=== PATIENT | female | born 1980 | race Caucasian/White ===

== ENCOUNTER 2016-12-21 09:04 | Inpatient (IN) | payer BC, OTHER ==
[2016-12-21] VITALS (7 sets, daily range): BP systolic 106–145; BP diastolic 58–70
[~2016-12-21] VITALS: Ht 157.5 cm; Wt 86.2 kg
[~2016-12-21 09:04] MED LIST: /MOM400 PO; /PANT40TA PO; /RANI15TA PO; ACIP20TA PO; ANUS2.5C2 EXT; DOCU10ELUD PO; IBUP600T26 PO; LABE20TAB PO; LABE300T PO; NEXI20GR PO; NORCOTAB PO; PRENTAB74 PO; ZANT150T PO
[2016-12-21] MEDS ORDERED: LR 1,000 ML IV ONE (09:30)
[2016-12-21] MEDS ORDERED: LR 1,000 ML IV SCH ×2 (09:30→14:15)
[2016-12-21 09:42] LABS: MEAN CORPUSCULAR HEMOGLOBIN 27.6 pg (27.0-33.0); MEAN CORPUSCULAR HGB CONC 33.5 g/dl (32.0-36.5); MEAN CORPUSCULAR VOLUME 82.5 fl (80.0-96.0); RED CELL DISTRIBUTION WIDTH 13.7 % (11.5-14.5); WHITE BLOOD COUNT 5.8 K/mm3 (4.0-10.0)
[2016-12-21] MEDS ORDERED: SCOPOLAMINE 1.5 MG TRANSDERMAL As Ordered ONE (09:45)
[2016-12-21] MEDS ORDERED: SCOPOLAMINE 1.5 MG TRANSDERMAL TOP ONE (10:00)
[2016-12-21] MEDS ORDERED: MIDAZOLAM INJ 2 MG/2 ML VIAL (J2250) As Ordered ONE (11:26)
[2016-12-21] MEDS ORDERED: GLYCOPYRROLATE INJ 0.2 MG/ML 2 ML VIAL As Ordered ONE ×2 (11:27→13:25)
[2016-12-21] MEDS ORDERED: fentaNYL 100 MCG/2 ML INJECTION (J3010) As Ordered ONE ×3 (11:27→13:58)
[2016-12-21] MEDS ORDERED: ROCURONIUM BROMIDE 50 MG/5 ML VIAL/SYRINGE As Ordered ONE ×2 (11:27→12:28)
[2016-12-21] MEDS ORDERED: NEOSTIGMINE 1MG/ML 5 ML SYRINGE (J2710) As Ordered ONE (11:27)
[2016-12-21] MEDS ORDERED: dexameTHASONE 4 MG/ML 1ML VIAL (J1100) As Ordered ONE ×2 (11:28→12:28)
[2016-12-21] MEDS ORDERED: METOCLOPRAMIDE INJ 10MG/2ML VIAL (J2765) As Ordered ONE (11:28)
[2016-12-21] MEDS ORDERED: KETOROLAC 60 MG/2 ML VIAL (J1885) As Ordered ONE (11:28)
[2016-12-21] MEDS ORDERED: ONDANSETRON 4MG/2ML VIAL (J2405) As Ordered ONE (11:28)
[2016-12-21] MEDS ORDERED: LIDOCAINE 2% INJ 100 MG/5 ML SDV (FOR ANES.) As Ordered ONE (11:39)
[2016-12-21] MEDS ORDERED: HYDROmorphone HCL 2 MG/ML 1ML VIAL (J1170) As Ordered ONE (12:26)
[2016-12-21] MEDS ORDERED: PROPOFOL 500 MG/50 ML VIAL As Ordered ONE (13:01)
[2016-12-21] MEDS ORDERED: PROPOFOL 200 MG/20 ML VIAL As Ordered ONE (13:29)
[2016-12-21] MEDS ORDERED: MORPHINE 1MG/ML IN 0.9% NACL 100ML IV BAG As Ordered ONE (13:34)
[2016-12-21] MEDS: fentaNYL 100 MCG/2 ML INJECTION (J3010) IV PRN ×4 (13:50→14:05)
[2016-12-21] MEDS: MORPHINE 1MG/ML IN 0.9% NACL 100ML IV BAG IV PRN (13:55)
[2016-12-21] MEDS ORDERED: EPIDURAL/PCA KEYS XX PRN (14:00)
[2016-12-21] MEDS ORDERED: NALBUPHINE HCL 10 MG/ML AMP (J2300) IV PRN (14:00)
[2016-12-21] MEDS ORDERED: diphenhydrAMINE INJ 50MG/ML VIAL (J1200) IV PRN (14:00)
[2016-12-21] MEDS ORDERED: NALOXONE INJ 0.4 MG/1 ML VIAL (J2310) IV PRN (14:00)
[2016-12-21] MEDS: MORPHINE 2 MG/ML 1ML SYRINGE IV PRN ×3 (14:14→15:02)
[2016-12-21] MEDS ORDERED: IBUPROFEN 600 MG TAB PO PRN (14:15)
[2016-12-21] MEDS ORDERED: PERCOCET 5MG/325MG TAB PO PRN (14:15)
[2016-12-21] MEDS ORDERED: ONDANSETRON 4MG/2ML VIAL (J2405) IV PRN (14:15)
[2016-12-21] MEDS: LR 1,000 ML IV SCH ×2 (16:15→22:15)
[2016-12-21] MEDS: PANTOPRAZOLE 40MG TAB (PROTONIX) PO SCH (17:47)
[2016-12-22] VITALS (7 sets, daily range): BP systolic 108–132; BP diastolic 60–68
[2016-12-22] MEDS ORDERED: NS 1,000 ML IV ONE (06:00)
[2016-12-22] MEDS: LR 1,000 ML IV SCH ×3 (06:15→17:48)
[2016-12-22 06:20] LABS: MEAN CORPUSCULAR HEMOGLOBIN 27.9 pg (27.0-33.0); MEAN CORPUSCULAR HGB CONC 33.6 g/dl (32.0-36.5); WHITE BLOOD COUNT 19.6 K/mm3 (4.0-10.0)
[2016-12-22] MEDS: PANTOPRAZOLE 40MG TAB (PROTONIX) PO SCH (09:43)
[2016-12-22] MEDS: MORPHINE 1MG/ML IN 0.9% NACL 100ML IV BAG IV PRN (09:56)
[2016-12-22 11:50] LABS: MEAN CORPUSCULAR HEMOGLOBIN 27.5 pg (27.0-33.0); MEAN CORPUSCULAR HGB CONC 33.4 g/dl (32.0-36.5); MEAN CORPUSCULAR VOLUME 82.5 fl (80.0-96.0); RED CELL DISTRIBUTION WIDTH 14.1 % (11.5-14.5); WHITE BLOOD COUNT 13.1 K/mm3 (4.0-10.0)
[2016-12-22] MEDS ORDERED: CYSTO-CONRAY II 17.2% 250ML VIAL (Q9958) As Ordered ONE (12:18)
[2016-12-22] MEDS ORDERED: LACTATED RINGER'S 1000 ML IV ONE (14:15)
[2016-12-22 14:38] LABS: CREATININE FOR GFR 1.16 MG/DL (0.55-1.02); GLOMERULAR FILTRATION RATE 56.3 (>60); POTASSIUM SERUM 4.3 MEQ/L (3.5-5.1)
--- NOTE | 2016-12-22 14:58 | REP ---
CYSTOGRAM: The procedure was performed by SHUN Rust under the direct supervision of Dr. Mccabe. All imaging was reviewed with Dr. Mccabe prior to dictation. The 250 mL of Cysto-Conray was infused into the patient's bladder through an existing catheter. The bladder filled normally. There were no masses or lesions identified on this examination. The bladder is smooth in contour. No leaks were appreciated on this exam. Fluoroscopy time was 57 seconds. Reviewed by SHUN Rust 12/22/2016 03:58 PEdited and Signed by Eugenio Mccabe MD 12/22/2016 05:20 P
[2016-12-22] MEDS: NORCO, ANEXSIA 5/325MG TABLET (HYDROcodone/ACETAMINOPHEN) PO PRN ×2 (16:09→20:49)
--- NOTE | 2016-12-22 16:59 | RO ---
DATE OF PROCEDURE: 12/21/2016 PREOPERATIVE DIAGNOSIS: Pain and bleeding. POSTOPERATIVE DIAGNOSIS: 1. Pain and bleeding. 2. Extensive adhesions as expected with the patient's multiple surgeries and history of endometriosis. PROCEDURE: Laparoscopic-assisted vaginal hysterectomy with bilateral salpingectomy. The patient retained her ovaries; she is only 36. She did have evidence of extensive endometriosis at the time of our surgery, but she did have extensive adhesions as are documented in the operative photos. SURGEON: Dr. Anca Aldana FORGE PRESS OPERATOR: None. ANESTHESIA: General endotracheal anesthesia. DESCRIPTION OF PROCEDURE: Mimi was brought to the operating room where sufficient general endotracheal anesthesia was induced, and she was prepped, draped and positioned in the usual sterile fashion with the uterine manipulator placed and the Reeves catheter with ability to backfill placed. Attention was then turned to the umbilicus where a transverse semilunar incision was made below the umbilicus and sharp and blunt dissection were continued through the subcutaneous tissues to the level of the rectus fascia, which was transversely incised under direct visualization and then the peritoneum entered under direct visualization, and the Link cannula placed and secured in place under direct visualization in an open laparoscopic technique in the usual fashion. CO2 insufflation was then begun. After adequate CO2 insufflation, the peritoneal cavity was visualized. There were normal, shiny peritoneal surfaces throughout. There was no excrescences, ascites, nor exudates but there were extensive adhesions in the lower abdomen and pelvis, especially from the left side of the uterus and the anterior uterus in a pattern often seen with section. Although this, of course, can not be proven or disproven as the cause. The ovaries themselves were normal in appearance. The tubes had scarring from previous tubal ligation. The left Filshie clip was in place. The right Filshie clip was not in place. There was no visible identifiable Filshie clip, but there was a defect in that tube as expected with previous tubal, so there was clearly scarring from having had it done but the Filshie was not on, nor was it visible. An Enseal manipulating bipolar dissector was placed through the operative port of the scope and used to carefully cauterize and dissect the tubes free of the ovaries. We did use a 2.3 mm clutch grasper placed suprapubically through her section scar to elevate the tube on the right side to facilitate this dissection. We then dissected through the round ligament bilaterally and the superior aspect of the broad ligament bilaterally and then used cold scissors, brought down the adhesions in the anterior uterus. We backfilled the bladder as needed to identify its location and confirm that we were not injuring it, and then having freed much of those adhesions, avoided injury to the bowel or ureters and bladder and freed the utero-ovarian suspensory ligaments, the mesentery of the tube and the round ligaments bilaterally. We went ahead and went below where with the CO2 allowed to escape the abdomen, the instruments removed etc., and attention turned to the cervix where a circumferential incision was made around the base of the cervix. The cardinal ligaments were isolated, clamped, transected and ligated using 0 Vicryl suture, and the Tarun Henry lamps, which were used throughout this portion of the case. The vaginal dissection continued with the isolation of the uterosacrals, which were clamped, transected and ligated, the posterior reflection of the peritoneum, of course, entered and with careful sharp dissection, staying very tight to the uterus, we freed the anterior uterus as well without injury to the bladder. The uterine vasculature was then carefully clamped, transected and ligated with delivery of the uterus and the attached tubes after this dissection had continued appropriately. We then evaluated the pedicles from below. We could see good hemostasis. Angle stitches of #0 Vicryl were placed and the vaginal cuff was closed with a running locked stitch of #0 Vicryl in which we also re-secured carefully the uterosacral ligaments and had good approximation and hemostasis. Attention was then again turned to the abdomen where CO2 was again used to insufflate the abdomen and the peritoneal cavity reevaluated. There was no evidence of injury to the bladder, and there was good hemostasis of the pedicles and evidence of good blood supply to the ovaries and the procedure was then ended. With the instruments and CO2 removed and the fascial wound closed with #0 Vicryl at the umbilicus and then #3-0 at the skin and the Dermabond glue used at the 2.3 mm wound suprapubically. A dry sterile dressing was then applied and the procedure was then ended. Estimated blood loss for the procedure was about 150 mL. Fluid replacement was crystalloid. Complications: None. Condition and Disposition: Mimi tolerated the procedure well and was recovering in the recovery room in good condition.
[2016-12-23] VITALS: BP 121/72
[2016-12-23] MEDS: NORCO, ANEXSIA 5/325MG TABLET (HYDROcodone/ACETAMINOPHEN) PO PRN ×3 (01:02→09:40)
[2016-12-23] MEDS: LR 1,000 ML IV SCH (02:35)
[2016-12-23 04:00] VITALS: BP 148/81
[2016-12-23 06:42] LABS: MEAN CORPUSCULAR HEMOGLOBIN 27.8 pg (27.0-33.0); MEAN CORPUSCULAR HGB CONC 33.8 g/dl (32.0-36.5); MEAN CORPUSCULAR VOLUME 82.2 fl (80.0-96.0); WHITE BLOOD COUNT 10.3 K/mm3 (4.0-10.0)
[2016-12-23 07:14] LABS: CREATININE FOR GFR 1.02 MG/DL (0.55-1.02); GLOMERULAR FILTRATION RATE > 60.0 (>60)
[2016-12-23] MEDS: PANTOPRAZOLE 40MG TAB (PROTONIX) PO SCH (09:39)
[2016-12-23] MEDS ORDERED: LORT5TAB PO (11:11)
--- NOTE | 2016-12-26 16:14 | DSES ---
DATE OF ADMISSION: 12/22/2016 DATE OF DISCHARGE: 12/23/2016 PREOPERATIVE AND ADMITTING DIAGNOSES: Pain, bleeding, dyspareunia, failed conservative efforts, and tender uterus. ADDITIONAL DIAGNOSES PRIOR TO DISCHARGE: 1. Postoperative ileus. 2. Decreased urine output with resolution. BRIEF SUMMARY OF HOSPITAL PRESENTATION AND HOSPITAL COURSE: Mimi presented a 36-year-old 4, para 1-2-1-3 with pain, bleeding, uterine tenderness, and dyspareunia. She had a significant medical history of previous eclamptic seizure with stroke as well as endometriosis, gastroesophageal reflux, wrist surgery, laparoscopy, tubal ligation, and endometrial ablation which had obviously not succeeded. Her family history showed hypertension, heart disease, diabetes, breast cancer, colon cancer, and ovarian cancer. Her social history showed that she was a nonsmoker, nondrug user. She had no known drug allergies. Her medications included: Nexium, naproxen, and sometimes fluconazole. PHYSICAL EXAMINATION: Showed an alert, oriented individual with no apparent distress. Her lungs were clear to auscultation. Heart showed a regular rate and rhythm without murmur. She had normoactive bowel sounds. A soft, nontender abdomen but a tender uterus. INITIAL IMPRESSION: Pain, bleeding, dyspareunia, failed conservative efforts. PLAN: Laparoscopically assisted vaginal hysterectomy (LA[facility]) with removal tubes as well. She was admitted on 12/21/2016. She subsequently underwent the laparoscopic-assisted vaginal hysterectomy with bilateral salpingectomy, she retains her ovaries, in what appeared to be an uncomplicated fashion on 12/21/2016. She subsequently had a postoperative course complicated by what appeared to be postoperative ileus and decreased output. She had a cystometrogram that showed that it was not leakage and rereview of the records showed that her decreased output had been from fairly early on. She was hydrated. Her counts went down a little and there was a suspicion that this was a result of operative bleeding and inadequate hydration because she improved. She initially did not have flatus and had some nausea, so we kept her at just clears but then her bowel function returned. She started passing gas. She started feeling hungry. She was not febrile. Her white count which had jumped responded so we felt that this was a response to the ileus and an operative bleed rather than something else, and her films showed lack of injury to the renal system and so she was then discharged to home in good condition on 12/23/2016.
== END 2016-12-23 12:00 | disposition home or self-care (01) | DRG 513 ==
LOC: M SDC 09:04 → M PED 15:42 → M SDC 12-22 17:06
PROVIDERS: ADMIT Obstetrics & Gynecology; ATTEND Obstetrics & Gynecology
PROC: 0UT9FZZ Resection of Uterus, Via Natural or Artificial Opening With Percutaneous Endoscopic Assistance (ICD-10-PCS; principal; 2016-12-22)
PROC: 0UT7FZZ Resection of Bilateral Fallopian Tubes, Via Natural or Artificial Opening With Percutaneous Endoscopic Assistance (ICD-10-PCS; 2016-12-22)
PROC: 0UTC8ZZ Resection of Cervix, Via Natural or Artificial Opening Endoscopic (ICD-10-PCS; 2016-12-22)
DX: N92.0 Excessive and frequent menstruation with regular cycle (principal); K56.7 Ileus, unspecified; N94.10 Unspecified dyspareunia; K21.9 Gastro-esophageal reflux disease without esophagitis; N73.6 Female pelvic peritoneal adhesions (postinfective); Z79.1 Long term (current) use of non-steroidal anti-inflammatories (NSAID); Z79.899 Other long term (current) drug therapy

== ENCOUNTER 2016-12-25 04:12 | Inpatient (IN) | payer BC, OTHER ==
[~2016-12-25] VITALS: Ht 157.5 cm; Wt 84.5 kg
[~2016-12-25 04:12] MED LIST changes: +LORT5TAB PO
[2016-12-25] MEDS ORDERED: LORT5TAB PO (04:28)
[2016-12-25] MEDS ORDERED: NS 1,000 ML IV ONE ×2 (04:45→07:15)
[2016-12-25] MEDS ORDERED: MORPHINE 4 MG/ML 1ML SYRINGE IV ONE (04:45)
[2016-12-25] MEDS ORDERED: METOCLOPRAMIDE INJ 10MG/2ML VIAL (J2765) IV ONE (04:45)
[2016-12-25 04:51] LABS: BASO % 0.1 % (0.0-1.0); EOS # 0.1 K/mm3 (0.0-0.50); EOS % 0.8 % (0.0-3.0); LARGE UNSTAINED CELL # 0.1 K/mm3 (0.0-0.4); LARGE UNSTAINED CELL % 0.8 % (0.0-4.0); LYMPH # 0.6 K/mm3 (1.5-4.5); LYMPH % 5.5 % (24.0-44.0); MEAN CORPUSCULAR HEMOGLOBIN 27.3 pg (27.0-33.0); MEAN CORPUSCULAR HGB CONC 33.1 g/dl (32.0-36.5); MEAN CORPUSCULAR VOLUME 82.5 fl (80.0-96.0); MONO # 0.3 K/mm3 (0.0-0.8); MONO % 2.8 % (0.0-5.0); NEUTROPHILS # 9.4 K/mm3 (1.8-7.7); PLATELET COUNT, AUTOMATED 282 k/mm3 (150-450); RED CELL DISTRIBUTION WIDTH 14.3 % (11.5-14.5); WHITE BLOOD COUNT 10.4 K/mm3 (4.0-10.0)
[2016-12-25 05:09] LABS: ANION GAP 10 MEQ/L (8-16); BLOOD UREA NITROGEN 11 MG/DL (7-18); CALCIUM LEVEL 7.5 MG/DL (8.5-10.1); CARBON DIOXIDE LEVEL 27 MEQ/L (21-32); CHLORIDE LEVEL 104 MEQ/L (98-107); CREATININE FOR GFR 0.72 MG/DL (0.55-1.02); GLOMERULAR FILTRATION RATE > 60.0 (>60); GLUCOSE, FASTING 98 MG/DL (70-105); SODIUM LEVEL 141 MEQ/L (136-145)
[2016-12-25] MEDS ORDERED: ISOVUE-370 76% 100ML VIAL (Q9967) As Ordered ONE (06:21)
--- NOTE | 2016-12-25 07:10 | REPUSA ---
CLINICAL HISTORY: Abdominal pain. TECHNIQUE: Multiple axial, sagittal and coronal CT images were obtained through the abdomen and pelvi s after administration of intravenous contrast material. COMMENTS: Moderate partial small bowel obstruction. Transition zone in the left lower quadrant. Moderate amount of free fluid with associated pneumoperitoneum suspicious for bowel perforation. Diffuse thickening of the wall of the sigmoid colon. Subcutaneous fat stranding of the anterior abdominal wall. The liver is mildly enlarged decreased attenuation without mass or defect. There is no intra or extra hepatic biliary ductal dilatation. The spleen is normal. The gallbladder is within normal limits. The pancreas is of normal contour and attenuation characteristics. There is no evidence of adrenal mass. Both kidneys demonstrate prompt and equal nephrograms. The kidneys are normal in size, shape and conf iguration. There is no evidence of renal or ureteral mass. No renal or ureteral calculi are identifie d. There is no hydroureter or hydronephrosis. No evidence for appendicitis. There is no evidence of intrinsic or extrinsic bladder mass. Images of the lung bases show no evidence of pleural or parenchymal mass. There are small bilateral pleural effusions. Passive atelectatic airspace disease of the lower lobes. The bony structures are free of lytic or blastic lesions. Multilevel degenerative changes are seen in volving the thoracolumbar spine. Scattered calcifications are seen involving the aorta and major branches compatible with atherosclero sis. IMPRESSION: Partial small bowel obstruction. Transition zone in the left lower quadrant. Moderate pneumoperitoneum suspicious for bowel perforation. Clinical evaluation and exclusion of rece nt surgical intervention are suggested. Moderate amount of free fluid in the abdomen and pelvis. Diffusely thickened sigmoid colon. Thank you for your kind referral of this patient.
[2016-12-25] MEDS ORDERED: KCL 10MEQ IN 100ML SWI (KRUN) 10 MEQ in APPROPRIATE DILUENT 1 EA IV ONE ×2 (07:30)
[2016-12-25] MEDS ORDERED: ACETAMINOPHEN 650 MG SUPP PR ONE (07:45)
[2016-12-25] MEDS ORDERED: PIPERACILLIN/TAZOBACTAM SOD 3.375 GM in D5W MINI-BAG PLUS 50 ML IV ONE (07:45)
[2016-12-25] MEDS ORDERED: ACETAMINOPHEN 650 MG SUPP As Ordered ONE (07:47)
[2016-12-25] MEDS ORDERED: ESOM0.1C PO (07:47)
--- NOTE | 2016-12-25 08:23 | REP ---
Clinical: Hypoxia. No pneumoperitoneum. Findings: Poor inspiratory effort is appreciated along with bibasilar atelectasis. Mediastinum and cardiac silhouette are grossly normal. No obvious pneumothorax. Pneumoperitoneum best identified on concurrent CT of the abdomen and pelvis. Skeletal structures are intact. Impression: Poor inspiratory effort. Bibasilar atelectasis (left greater than right). Signed by Maxime Deshpande MD 12/25/2016 08:14 A
--- NOTE | 2016-12-25 10:19 | CR.PDOC ---
General Surgery Consultation Date of Consultation 12/25/16 History and Physical CONSULT REPORT FOR: Anca Aldana MD REASON FOR CONSULTATION: Postoperative small bowel obstruction, pneumoperitoneum , ascites HISTORY OF PRESENT ILLNESS: Patient is a 36-year-old female underwent laparoscopic-assisted vaginal hysterectomy on 12/21/2016. She had an extended stay in the hospital through to Sunday morning for postoperative pain and discomfort. At home she continues to have abdominal discomfort though she reports that this was no worse than what she was at the hospital. Sunday morning she started throwing up. She reports at least 3 episodes of large amounts of emesis last one was about 3 AM. She was temporarily have some mild relief of the pain and nausea until the next bout. She presented to the emergency room at about 4:30 morning. Evaluation shows distended abdomen, normal white cell count, normal lactic acid. She had a CT scan of the abdomen and pelvis showing evidence for small bowel obstruction, abdominal ascites and scattered bubbles of free intraperitoneal air. She is currently being admitted by her extermination inspector and was asked to see the patient and render my opinion regarding her condition especially that of the significance of the pneumoperitoneum. Also of note she had a postoperative cystogram done showing no leakage or injury from the bladder. She reports that she had some difficulty urinating postoperatively that required fluid boluses. Patient reports no flatus , no bowel movements since his surgery PAST MEDICAL HISTORY: 1. Gastroesophageal reflux disease 2. Anxiety 3. Ovarian cyst 4. Endometriosis 5. Urinary incontinence 6. Eclampsia during - history of CVA during 2061 eclampsia with no residual symptoms 7. Preeclampsia 8. Chronic urticaria PAST SURGICAL HISTORY: INCLUDES: 1 tonsillectomy 2. section 3 3. Tubal ligation 4. Endometrial ablation December 2014 5. Laparoscopy for endometriosis 4 6. Left wrist cyst removal and tendon repair . PREVIOUS ANESTHESIA REACTIONS: ALLERGIES: Please see below. FAMILY HISTORY:Noncontributory HOME MEDICATIONS: Please see below. REVIEW OF SYSTEMS: GENERAL: Denies chills, fever. Significant for postoperative abdominal pain, discomfort, bloating HEENT: Denies blurred vision and double vision. Denies ear symptoms. Denies hoarseness. NECK: Denies any neck pain]. CARDIOVASCULAR: Denies chest pain and palpitations. MUSCULOSKELETAL: Denies arthralgias, back pain and thrombophlebitis. SKIN: Denies rash. NEUROLOGIC: Denies headache. She had a remote history of CVA during a past is no residual symptoms afterwards PSYCHIATRIC: Reports history of anxiety ENDOCRINE: Denies thyroid disease. HEMATOLOGY/ONCOLOGY: Denies bleeding or clotting disorder. HEART: Denies any chest pains, palpitations, paroxysmal dyspnea, orthopnea. PULMONARY: Denies chronic cough, dyspnea and wheezing. GASTROINTESTINAL: Denies passing any flatus or bowel movements after the surgery. Reports normal daily bowel movements GENITOURINARY: She had difficulty urinating perioperatively. She had a cystogram done showing no bladder injury. She reports the low urine output resolved with fluid boluses and at that time that she got home was urinating normally ENDOCRINE: Denies polydipsia, polyphagia, polyuria, heat or cold intolerance. INFECTIOUS: Denies any recent upper respiratory tract infection, UTI, need for use of antibiotics. NUTRITION: Reports poor appetite PHYSICAL EXAMINATION: VITALS SIGNS: Please see below. GENERAL APPEARANCE:Patient seen, laying in bed, awake, alert, and oriented. Uncomfortable, slightly anxious appearing SKIN: Warm and dry HEENT: Normocephalic, atraumatic. Albin palpebral conjunctiva, anicteric sclerae. Lips and mucosa appear very dry. Nasogastric tube in place, bilious output in the canister. From nursing reports about 200 ML's came out on insertion NECK: Supple, no thyromegaly. No obvious jugular venous distention. LUNGS: Clear to auscultation bilaterally. No wheezing appreciated. HEART: No chest wall abnormalities. Tachycardic, regular rhythm ABDOMEN: Abdomen is , round, soft, moderately distended. Port sites over the umbilicus and left and right lower quadrant area. Tympanitic to percussion. Moderate tenderness over the right and left side of the abdomen and also slightly at the supra pubic area. Mild guarding over the right and left of the abdomen. No guarding over the upper abdomen and periumbilical area. This moderately uncomfortable during palpation. EXTREMITIES: Extremities have no deformities. No edema identified ANCILLARIES: . LABORATORY DATA: Please see below. IMAGING STUDIES: CT abdomen and pelvis Transition zone in the left lower quadrant. Moderate amount of free fluid with associated pneumoperitoneum suspicious for bowel perforation. Diffuse thickening of the wall of the sigmoid colon. Subcutaneous fat stranding of the anterior abdominal wall. The liver is mildly enlarged decreased attenuation without mass or defect. There is no intra or extrahepatic biliary ductal dilatation. The spleen is normal. The gallbladder is within normal limits. The pancreas is of normal contour and attenuation characteristics. There is no evidence of adrenal mass. Both kidneys demonstrate prompt and equal nephrograms. The kidneys are normal in size, shape and configuration. There is no evidence of renal or ureteral mass. No renal or ureteral calculi are identified. There is no hydroureter or hydronephrosis. No evidence for appendicitis. There is no evidence of intrinsic or extrinsic bladder mass. Images of the lung bases show no evidence of pleural or parenchymal mass. There are small bilateral pleural effusions. Passive atelectatic airspace disease of the lower lobes. The bony structures are free of lytic or blastic lesions. Multilevel degenerative changes are seen involving the thoracolumbar spine. Scattered calcifications are seen involving the aorta and major branches compatible with atherosclerosis. IMPRESSION AND PLAN: Continued postoperative pain, postoperative small bowel obstruction As I explained to the patient, the main concern right now is whether there was an injury intraoperatively that was not recognized. A plane postoperative small bowel obstruction secondary to the bowel adhering to the raw surfaces of the pelvis. Pelvic surgery the most common causes of postoperative bowel obstructions. My main concern is the amount of ascites in the CT scan of the abdomen and pelvis as well as the surrounding inflammatory reaction, third spacing that I could see over the subcutaneous tissue. Looking at her perioperative course she required fluid boluses to get her urine output up which is sign of dehydration. Her hemoglobin and hematocrit has been stable out the perioperative course. Certainly the fluid could be from bleeding, irrigation or it should be from bowel injury. I spoke to them about the possibility of this. I expect her to improve throughout the course of the table with the nasogastric tube and IV fluid hydration. I will come back to her a couple of times during the day to reexamine her. If there is no significant improvement or she worsens or the pain continues, my recommendation is to bring her to the operating room to do a diagnostic laparoscopy. I spoke to Dr. Aldana after my conversation with the patient regarding the plan. Vital Signs Vital Signs Date Time Temp Pulse Resp B/P (MAP) Pulse Ox O2 Delivery O2 Flow Rate FiO2 12/25/16 08:29 97 2.0 12/25/16 07:42 101.3 125 28 Room Air Laboratory Data Labs 24H Laboratory Tests 2 12/25/16 04:43: White Blood Count 10.4H, Red Blood Count 4.42, Hemoglobin 12.1, Hematocrit 36.5 , Mean Corpuscular Volume 82.5, Mean Corpuscular Hemoglobin 27.3, Mean Corpuscular Hemoglobin Concent 33.1, Red Cell Distribution Width 14.3, Platelet Count 282, Neutrophils (%) (Auto) 90.0H, Lymphocytes (%) (Auto) 5.5L, Monocytes (%) (Auto) 2.8, Eosinophils (%) (Auto) 0.8, Basophils (%) (Auto) 0.1, Neutrophils # (Auto) 9.4H, Lymphocytes # (Auto) 0.6L, Monocytes # (Auto) 0.3, Eosinophils # (Auto) 0.1, Basophils # (Auto) 0.0, Large Unclassified Cells % 0.8 , Large Unclassified Cells # 0.1, Anion Gap 10, Glomerular Filtration Rate > 60.0, Blood Urea Nitrogen 11, Creatinine 0.72, Sodium Level 141, Potassium Level 3.0#L, Chloride Level 104, Carbon Dioxide Level 27, Calcium Level 7.5L 12/25/16 05:02: Lactic Acid Level 1.1 CBC/BMP Laboratory Tests 12/25/16 04:43 Red Blood Count 4.42, Mean Corpuscular Volume 82.5, Mean Corpuscular Hemoglobin 27.3, Mean Corpuscular Hemoglobin Concent 33.1, Red Cell Distribution Width 14.3 , Neutrophils (%) (Auto) 90.0 H, Lymphocytes (%) (Auto) 5.5 L, Monocytes (%) ( Auto) 2.8, Eosinophils (%) (Auto) 0.8, Basophils (%) (Auto) 0.1, Neutrophils # ( Auto) 9.4 H, Lymphocytes # (Auto) 0.6 L, Monocytes # (Auto) 0.3, Eosinophils # ( Auto) 0.1, Basophils # (Auto) 0.0, Calcium Level 7.5 L Microbiology Microbiology 12/25/16 Blood Culture, Received Pending Home Medications Scheduled (Esomeprazole Magnesium) 20 Mg Cap, 20 MG PO QPM, (Reported) Scheduled PRN (Lortab 5-325 mg) 1 Tab Tab, 1 TAB PO QID PRN for PAIN, (Reported) Allergies Coded Allergies: No Known Drug Allergy (Verified Allergy, Unknown, 12/21/16) REZA LANDRY MD Dec 25, 2016 10:19
[2016-12-25 12:15] VITALS: BP 124/85
[2016-12-25] MEDS: LR 1,000 ML IV SCH ×2 (15:28→23:18)
[2016-12-25] MEDS: PIPERACILLIN/TAZOBACTAM SOD 3.375 GM in D5W MINI-BAG PLUS 50 ML IV SCH ×2 (15:28→23:17)
[2016-12-25 16:00] VITALS: BP 140/88
[2016-12-25] MEDS ORDERED: fentaNYL 250 MCG/5 ML INJECTION (J3010) As Ordered ONE (19:07)
[2016-12-25] MEDS ORDERED: PROPOFOL 200 MG/20 ML VIAL As Ordered ONE (19:07)
[2016-12-25] MEDS ORDERED: ROCURONIUM BROMIDE 50 MG/5 ML VIAL/SYRINGE As Ordered ONE (19:07)
[2016-12-25] MEDS ORDERED: MIDAZOLAM INJ 2 MG/2 ML VIAL (J2250) As Ordered ONE (19:07)
[2016-12-25] MEDS ORDERED: LIDOCAINE 2% INJ 100 MG/5 ML SDV (FOR ANES.) As Ordered ONE (19:07)
[2016-12-25] MEDS ORDERED: BUPIVACAINE HCL 0.25% 30 ML VIAL As Ordered ONE (19:08)
[2016-12-25] MEDS ORDERED: LIDOCAINE 1% SDV INJ 30 ML VIAL As Ordered ONE (19:08)
[2016-12-25] MEDS ORDERED: dexameTHASONE 4 MG/ML 1ML VIAL (J1100) As Ordered ONE (20:00)
[2016-12-25] MEDS ORDERED: NEOSTIGMINE 1MG/ML 5 ML SYRINGE (J2710) As Ordered ONE (20:51)
[2016-12-25] MEDS ORDERED: GLYCOPYRROLATE INJ 0.2 MG/ML 2 ML VIAL As Ordered ONE (20:51)
[2016-12-25] MEDS ORDERED: HYDROmorphone HCL 2 MG/ML 1ML VIAL (J1170) As Ordered ONE (20:51)
[2016-12-25] MEDS ORDERED: ONDANSETRON 4MG/2ML VIAL (J2405) As Ordered ONE (20:51)
[2016-12-25] MEDS ORDERED: ZOSYN 3.375 GM VIAL (J2543) As Ordered ONE (21:09)
[2016-12-25] MEDS ORDERED: NS 1,000 ML IV SCH (22:07)
[2016-12-25] MEDS ORDERED: fentaNYL 100 MCG/2 ML INJECTION (J3010) As Ordered ONE (22:08)
[2016-12-25] MEDS ORDERED: MORPHINE 1MG/ML IN 0.9% NACL 100ML IV BAG As Ordered ONE (22:09)
[2016-12-25] MEDS: fentaNYL 100 MCG/2 ML INJECTION (J3010) IV PRN ×4 (22:14→22:35)
[2016-12-25] MEDS ORDERED: ONDANSETRON 4MG/2ML VIAL (J2405) IV PRN ×2 (22:15)
[2016-12-25] MEDS ORDERED: NALOXONE INJ 0.4 MG/1 ML VIAL (J2310) IV PRN (22:15)
[2016-12-25] MEDS ORDERED: NALBUPHINE HCL 10 MG/ML AMP (J2300) IV PRN (22:15)
[2016-12-25] MEDS ORDERED: EPIDURAL/PCA KEYS XX PRN (22:15)
[2016-12-25] MEDS ORDERED: diphenhydrAMINE INJ 50MG/ML VIAL (J1200) IV PRN (22:15)
[2016-12-25] MEDS ORDERED: LR 1,000 ML IV SCH (22:15)
[2016-12-25] MEDS ORDERED: MORPHINE 1MG/ML IN 0.9% NACL 100ML IV BAG IV PRN (22:15)
[2016-12-25 23:00] VITALS: BP 132/72
[2016-12-25 23:30] VITALS: BP 134/76
[2016-12-26] VITALS (8 sets, daily range): BP systolic 105–133; BP diastolic 56–75
[2016-12-26] MEDS: LR 1,000 ML IV SCH ×3 (03:34→18:59)
[2016-12-26] MEDS: PIPERACILLIN/TAZOBACTAM SOD 3.375 GM in D5W MINI-BAG PLUS 50 ML IV SCH ×4 (03:35→21:58)
[2016-12-26 06:02] LABS: MEAN CORPUSCULAR HEMOGLOBIN 27.4 pg (27.0-33.0); MEAN CORPUSCULAR HGB CONC 33.1 g/dl (32.0-36.5); MEAN CORPUSCULAR VOLUME 82.9 fl (80.0-96.0); RED CELL DISTRIBUTION WIDTH 14.5 % (11.5-14.5); WHITE BLOOD COUNT 16.3 K/mm3 (4.0-10.0)
[2016-12-26] MEDS ORDERED: MORPHINE 2 MG/ML 1ML SYRINGE IV PRN (16:00)
[2016-12-26] MEDS: NORCO, ANEXSIA 5/325MG TABLET (HYDROcodone/ACETAMINOPHEN) PO PRN ×2 (16:52→21:59)
--- NOTE | 2016-12-26 21:56 | IPNPDOC ---
Subjective General Date/Time Seen The patient was seen on 12/26/16 at 12:44. Subject Chief Complaint/History The patient is a 36-year-old female postop day 1 after expiratory laparotomy with findings of small bowel perforation and large amount of succus entericus leaking into the abdominal cavity with associated inflammatory response. She was febrile postoperatively. The fever trend seems to be coming down. She reports feeling moderately better today. She reports some burping. Not much from the nasogastric tube postoperatively. She is making adequate urine output. 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 Current Medications Current Medications Current Medications Acetaminophen/ Hydrocodone Bitart ([place], Anexsia 5/325) 1 tab Q4HP PRN PO MILD /MODERATE PAIN (PS 1-7) Last administered on 12/26/16 16:52; Start 12/26/16 at 16:00; Stop 01/02/17 at 15:59 Diphenhydramine HCl (Benadryl) 12.5 mg Q4HP PRN IV ITCHING; Start 12/25/16 at 22:15; Stop 01/24/17 at 22:14; Status Cancel Fentanyl Citrate (Sublimaze) 25 mcg Q5MP PRN IV MODERATE PAIN (PS 4-7) Last administered on 12/25/16 22:35; Start 12/25/16 at 22:15; Stop 12/25/16 at 23:15 ; Status DC Home Med (Med Rec Complete!) ASDIRECTED XX ; Start 12/25/16 at 08:00; Stop at 08:00; Status DC Lactated Ringer's 1,000 ml @ 100 mls/hr Q10H IV ; Start 12/25/16 at 22:15; Stop 12/25/16 at 23:15; Status DC Lactated Ringer's 1,000 ml @ 150 mls/hr Q6H40M IV Last administered on 18:59; Start 12/25/16 at 15:00; Stop 01/24/17 at 14:59 Morphine Sulfate (Morphine Sulfate In 0.9%Nacl Iv Bag) Concentration 1 mg/ml ASDIRECTED PRN IV SEE LABEL COMMENTS; Start 12/25/16 at 22:15; Stop 01/01/17 at 22:14; Status Cancel Morphine Sulfate (Morphine Sulfate Inj) 2 mg Q3HP PRN IV BREAKTHROUGH PAIN; Start 12/26/16 at 16:00; Stop 01/02/17 at 15:59 Nalbuphine HCl (Nubain) 2.5 mg Q6HP PRN IV PRURITIS; Start 12/25/16 at 22:15; Stop 01/01/17 at 22:14; Status Cancel Naloxone HCl (Narcan) 0.1 mg Q5MP PRN IV SEE LABEL COMMENTS; Start 12/25/16 at 22:15; Stop 01/24/17 at 22:14; Status Cancel Non-Formulary Medication (Epidural/LOOSE HAND PACKER [place]) USE THIS ENTRY TO VEND ... Q1M PRN XX SEE LABEL COMMENTS; Start 12/25/16 at 22:15; Stop 01/24/17 at 22:14; Status Cancel Ondansetron HCl (ZOFRAN INJection) 4 mg Q4HP PRN IV NAUSEA OR VOMITING; Start 12/25/16 at 22:15; Stop 12/25/16 at 23:15; Status DC Ondansetron HCl (ZOFRAN INJection) 4 mg Q6HP PRN IV NAUSEA OR VOMITING; Start 12/25/16 at 17:00; Stop 01/24/17 at 16:59; Status Future Hold Ondansetron HCl (ZOFRAN INJection) 4 mg Q6HP PRN IV NAUSEA; Start 12/25/16 at 22:15; Stop 01/24/17 at 22:14; Status Cancel Piperacillin Sod/ Tazobactam Sod 3.375 gm/Dextrose 50 ml @ 50 mls/hr Q6H IV Last administered on 12/26/16t 15:28; Start 12/25/16 at 15:00; Stop 01/01/17 at 14:59 Sodium Chloride 1,000 ml @ 15 mls/hr Q24H IV ; Start 12/25/16 at 22:07; Stop at 22:06; Status Cancel Allergies Coded Allergies: No Known Drug Allergy (Verified Allergy, Unknown, 12/21/16) Objective Physical Examination Examination GENERAL APPEARANCE:Patient seen, laying in bed, awake, alert, and oriented. Comfortable, in no acute distress. SKIN: Warm and dry. HEENT: Nasogastric tube in place, functioning. Lips and mucosa are dry. NECK: Supple, no thyromegaly. No obvious jugular venous distention. LUNGS: Clear to auscultation bilaterally. No wheezing appreciated. HEART: No chest wall abnormalities. Mildly tachycardic and regular rhythm rhythm . ABDOMEN: Abdomen is round, soft, moderately distended. Intra-abdominal dressing is clean, dry and intact. No postoperative drains placed. There is a Yi drain in the subcutaneous space. Postop dressings are dry. Reeves catheter with minimally concentrated urine. EXTREMITIES: Beginning mild edema. Vital Signs Vital Signs Date Time Temp Pulse Resp B/P (MAP) Pulse Ox O2 Delivery O2 Flow Rate FiO2 12/26/16 19:53 100.0 112 16 105/56 (72) 91 Room Air 12/26/16 08:06 3.0 I&Os I&O- Last 24 Hours up to 6 AM 12/26/16 06:00 Intake Total 6225 ml Output Total 2085 ml Balance 4140 ml Laboratory Data CBC/BMP Laboratory Tests 12/26/16 05:35 Red Blood Count 4.33, Mean Corpuscular Volume 82.9, Mean Corpuscular Hemoglobin 27.4, Mean Corpuscular Hemoglobin Concent 33.1, Red Cell Distribution Width 14.5 Microbiology Microbiology 12/25/16 Blood Culture - Preliminary, Resulted No growth after 24 hours . All specim... 12/25/16 Body Fluid Culture, Received Pending 12/25/16 Anaerobic Culture, Received Pending 12/26/16 Urine Culture, Received Pending Impression Iatrogenic injury to the small bowel with leakage of succus into the abdomen and resulting inflammatory response Sepsis Small bowel obstruction Postop day 1, abdominal exploration, washout of the abdomen, release of small bowel obstruction, resection of small bowel perforation with [id number] small bowel anastomosis Patient is hemodynamically stable still showing some febrile episodes but overall doing much better. As expected still with some ileus, though not much coming out from the nasogastric tube. We will discontinue the Reeves catheter today. She is encouraged and instructed to ambulate to hallways. I would like to keep the nasogastric tube for another day at least. I'll allow her some ice chips and sips of water. The LOOSE HAND PACKER will be discontinued that she is not using much of this. Continue with close monitoring. Plan / VTE VTE Prophylaxis Ordered?: Yes REZA LANDRY MD Dec 26, 2016 21:56
--- NOTE | 2016-12-26 22:14 | ROOPDOC ---
[facility] Report Of Operation Report of Operation DATE OF PROCEDURE: 12/25/16 PREPROCEDURE DIAGNOSES: Small bowel obstruction, possible iatrogenic bowel injury. POSTPROCEDURE DIAGNOSES: The echogenic small bowel perforation/injury with leakage of succus in the abdomen, peritonitis, small bowel obstruction. PROCEDURE: Diagnostic laparoscopy Expiratory laparotomy and conversion Release of small bowel obstruction Small bowel resection with [id number] small bowel anastomosis Washout of the abdomen. SURGEON: Dr. Daly MD CMM INSPECTOR: Dr. Katya MD ANESTHESIA: General. ESTIMATED BLOOD LOSS: Approximately 100 mL. COMPLICATIONS: None. REMARKS: There was a fairly large sized perforation in the antimesenteric wall of the small bowel that was found and compressing more than 50% of the wall. It is not evident how the perforation occurred just by examining the bowel perforation. There is a large amount of succus and murky fluid was evacuated in the abdomen with resulting inflammatory reaction and peritonitis. Inflammatory adhesion caused by the leakage of the succus between the small bowel causing obstruction. PROCEDURE NOTE: Our patient is a 36-year-old female seen in the emergency room for day postop after laparoscopic assisted hysterectomy with complaints of abdominal pain, nausea and vomiting. Also with fever noted during her stay in the emergency room. CT scan of the abdomen shows abdominal ascites, scattered bubbles of intraperitoneal air, small bowel obstruction. DESCRIPTION OF PROCEDURE: Patient has been receiving Zosyn 3.375 grams IV every 6 hours and has received at least 2 doses of the antibiotics. A nasogastric tube was then placed and his drain more than a liter preoperatively. She was brought to the operating room placed supine on the table. Compression boots placed on her lower extremities for DVT prophylaxis. General endotracheal anesthesia started without any complications. A Reeves catheter was placed for urine output monitoring. Her abdomen was prepped and draped in usual sterile fashion. A surgical timeout was performed prior to starting surgery. Brittany infraumbilical incision from the previous laparoscopy. The skin suture was opened up. I could not find a tract to open up the prior fascial closure due to the abdominal distention. Also of note a hard inflammatory fixed intraabdominal mass can be palpated underneath the umbilicus. Thus I decided to place a small incision over the left upper quadrant subcostal area where a Veress needle was inserted. Intra-abdominal placement was confirmed with saline drop technique. CO2 insufflation and started to pressure 15 mmHg. Using the same incision a 5 mm port was placed under direct vision of laparoscope. On entry into the abdomen is noted to have green, murky fluid consistent with enteric succus inside of the abdomen with large amount of inflammatory response , inflammatory adhesions in bowels and omentum noted. I bluntly dissected using the scope to look around 1 square evidence of bowel injury was noted we promptly converted to an open abdominal exploration. A generous midline incision was started from the previous port site were brought down to the suprapubic area and extended superiorly above the umbilicus. She has a thick amount of subcutaneous fat that we went through up until we reached the anterior fascia. The previous fascial opening from the laparoscopy was located and the Vicryl sutures were removed and used this as our point of entry. A finger sweep was performed to make sure there was no bowels adhered to the underside of the fascia and the fascia was opened up on a controlled fashion with direct visualization throughout the whole of the incision. The omentum was seen and draped and inflamed and this was slowly and draped over the bowels. There was an inflammatory mass of small bowel adhered just below the umbilicus. With mostly blunt dissection and finger sweep the bowels were freed in a controlled fashion. Large amounts of succus entericus was evacuated. After slowly freeing up this inflammatory mass of bowel with clear inflammation and fibrinous exudate surrounding the bowel were able to slowly exteriorize the small bowel and locate the perforation at about the mid ileum. There is a 2 cm perforation in compressing more than 50% of the wall with a heaped up mucosa noted freely draining enteric succus. This was controlled with [place] as we continued to free up the bowel. As were able to loosen up the bowel in the pelvis with blunt finger dissection were able to exteriorize more of the bowel distally up until we were able to visualize the cecum. The appendix is noted mild secondary inflow inflammation noted. Further drainage in the pelvis was freed up and evacuated. We then proceeded freeing up the more proximal small bowel up until were able to free up the whole small bowel down to the ligament of Treitz. The proximal small bowel noticeably more distended than the bowel prior to the inflamed small bowel consistent with bowel obstruction. While removing the fibrinous exudates the bowel wall and the mesentery we ran the bowel twice to make sure no other injury to small bowel. I palpated around the liver freeing up more inflammation and drainage. Also the stomach. The rectum and sigmoid being part of the descending colon was visualized likewise the cecum and part of the ascending colon. Once the total extent of the injury was assessed and only one perforation was found. We examine the extent of the inflammation and thickening of the bowel and picked our area of resection were we have healthy ends. The small bowel was transected at this point with 55 JALEN stapler with a blue load. The mesentery of the small bowel was divided with LigaSure device. A [id number] anastomosis was then fashioned using the JALEN 55 mm stapler with blue load with the enterotomy closed with TA 60 with a green load. The small bowel mesentery was closed with 2-0 Vicryl. We assessed our anastomosis noted the size to be adequate. I tested this make sure no leakage the crotch of the anastomosis was secured with 3-0 silk likewise at several points on the anastomosis and staple line which was bleeding was reinforced with 3-0 silk in [place] fashion. I sprayed Tisseel fibrin glue to the anastomosis as well as to the mesentery. Again we ran the small bowel making sure no injuries are missed. We then irrigated the abdomen with about 6-7 L of warm saline until he gets clear drainage back. After doing so the small bowel was replaced back into the abdomen the inflamed and necrotic appearing omentum was divided with LigaSure and the omentum draped over the small bowel. I palpated the nasogastric tube in the stomach noted this to be at the upper mid cautery. Further collection on the perihepatic perisplenic area was suctioned off. The abdomen was then closed. The fascia was closed with one looped PDS in a running fashion. As mentioned she has about 34 cm of pannus with slight inflammatory response. I left a half-inch [place] drain coming out into the through the skin to drain possible collection in the subcutaneous space and closed the skin loosely with maryam to allow for drainage in between the staple lines. Bulky gauze dressings and placed in the abdomen. Patient was promptly awakened, extubated to recovery room in relatively stable condition.. REZA LANDRY MD Dec 26, 2016 22:14
[2016-12-27] VITALS: BP 130/77
[2016-12-27] MEDS: LR 1,000 ML IV SCH (01:31)
[2016-12-27] MEDS: NORCO, ANEXSIA 5/325MG TABLET (HYDROcodone/ACETAMINOPHEN) PO PRN ×4 (02:27→22:59)
[2016-12-27] MEDS: PIPERACILLIN/TAZOBACTAM SOD 3.375 GM in D5W MINI-BAG PLUS 50 ML IV SCH ×4 (02:28→21:01)
[2016-12-27 04:00] VITALS: BP 125/63
[2016-12-27 07:12] LABS: BASO # 0.1 K/mm3 (0.0-0.2); BASO % 0.5 % (0.0-1.0); EOS # 0.1 K/mm3 (0.0-0.50); EOS % 0.7 % (0.0-3.0); LARGE UNSTAINED CELL # 0.2 K/mm3 (0.0-0.4); LARGE UNSTAINED CELL % 1.4 % (0.0-4.0); LYMPH # 1.2 K/mm3 (1.5-4.5); LYMPH % 8.3 % (24.0-44.0); MEAN CORPUSCULAR HEMOGLOBIN 27.2 pg (27.0-33.0); MEAN CORPUSCULAR HGB CONC 33.3 g/dl (32.0-36.5); MEAN CORPUSCULAR VOLUME 81.8 fl (80.0-96.0); MONO # 0.5 K/mm3 (0.0-0.8); MONO % 4.3 % (0.0-5.0); NEUTROPHILS # 10.3 K/mm3 (1.8-7.7); NEUTROPHILS % 84.7 % (36.0-66.0); PLATELET COUNT, AUTOMATED 244 k/mm3 (150-450); WHITE BLOOD COUNT 12.2 K/mm3 (4.0-10.0)
[2016-12-27 07:25] LABS: ANION GAP 9 MEQ/L (8-16); BLOOD UREA NITROGEN 8 MG/DL (7-18); CALCIUM LEVEL 7.1 MG/DL (8.5-10.1); CARBON DIOXIDE LEVEL 30 MEQ/L (21-32); CHLORIDE LEVEL 107 MEQ/L (98-107); GLOMERULAR FILTRATION RATE > 60.0 (>60); GLUCOSE, FASTING 96 MG/DL (70-105); POTASSIUM SERUM 2.9 MEQ/L (3.5-5.1); SODIUM LEVEL 146 MEQ/L (136-145)
[2016-12-27] MEDS: KCL 10MEQ IN 100ML SWI (KRUN) 10 MEQ in APPROPRIATE DILUENT 1 EA IV SCH ×4 (07:58→09:20)
[2016-12-27] MEDS: KCL 40MEQ IN D5/0.45NS 1000ML 1,000 ML IV SCH ×2 (07:58→23:00)
[2016-12-27 08:00] VITALS: BP 131/63
[2016-12-27] MEDS: PANTOPRAZOLE 40MG INJ (PROTONIX) (C9113) IV SCH (09:20)
[2016-12-27] MEDS: ENOXAPARIN 40 MG/0.4 ML SYRINGE (J1650) SC SCH (09:21)
[2016-12-27 12:00] VITALS: BP 129/81
[2016-12-27 16:00] VITALS: BP 129/71
[2016-12-27 20:00] VITALS: BP 127/73
[2016-12-28] VITALS: BP 128/72
[2016-12-28] MEDS: PIPERACILLIN/TAZOBACTAM SOD 3.375 GM in D5W MINI-BAG PLUS 50 ML IV SCH ×4 (03:08→21:12)
[2016-12-28 04:00] VITALS: BP 128/71
[2016-12-28 07:50] LABS: ADD MANUAL DIFFER YES; MEAN CORPUSCULAR HEMOGLOBIN 27.3 pg (27.0-33.0); MEAN CORPUSCULAR HGB CONC 33.2 g/dl (32.0-36.5); MEAN CORPUSCULAR VOLUME 82.4 fl (80.0-96.0); PLATELET COUNT, AUTOMATED 262 k/mm3 (150-450); RED CELL DISTRIBUTION WIDTH 14.9 % (11.5-14.5)
[2016-12-28 07:55] LABS: ANION GAP 9 MEQ/L (8-16); BLOOD UREA NITROGEN 6 MG/DL (7-18); CARBON DIOXIDE LEVEL 27 MEQ/L (21-32); CHLORIDE LEVEL 108 MEQ/L (98-107); CREATININE FOR GFR 0.56 MG/DL (0.55-1.02); GLOMERULAR FILTRATION RATE > 60.0 (>60); GLUCOSE, FASTING 104 MG/DL (70-105); POTASSIUM SERUM 3.5 MEQ/L (3.5-5.1); SODIUM LEVEL 144 MEQ/L (136-145)
[2016-12-28 08:00] VITALS: BP 132/86
[2016-12-28 08:52] LABS: BANDS 2 % (< 11); EOSINOPHILS 2 % (0-5)
[2016-12-28 08:53] LABS: ANISOCYTOSIS 2+; HYPOCHROMASIA 1+; TOXIC GRANULATION 1+
[2016-12-28 08:54] LABS: MICROCYTOSIS 1+
[2016-12-28] MEDS: KCL 40MEQ IN D5/0.45NS 1000ML 1,000 ML IV SCH ×2 (10:04→15:05)
[2016-12-28] MEDS: PANTOPRAZOLE 40MG INJ (PROTONIX) (C9113) IV SCH (10:16)
[2016-12-28] MEDS: ENOXAPARIN 40 MG/0.4 ML SYRINGE (J1650) SC SCH (10:17)
[2016-12-28 12:00] VITALS: BP 134/79
[2016-12-28 22:00] VITALS: BP 133/75
[2016-12-29] MEDS: KCL 40MEQ IN D5/0.45NS 1000ML 1,000 ML IV SCH ×3 (00:57→19:45)
[2016-12-29] MEDS: SIMETHICONE 80 MG CHEW TAB PO PRN ×4 (00:57→23:11)
[2016-12-29] MEDS: PIPERACILLIN/TAZOBACTAM SOD 3.375 GM in D5W MINI-BAG PLUS 50 ML IV SCH ×4 (04:00→20:17)
[2016-12-29 06:00] VITALS: BP 136/86
[2016-12-29 07:24] LABS: BASO # 0.2 K/mm3 (0.0-0.2); BASO % 0.9 % (0.0-1.0); EOS # 0.1 K/mm3 (0.0-0.50); EOS % 0.6 % (0.0-3.0); LARGE UNSTAINED CELL # 0.3 K/mm3 (0.0-0.4); LARGE UNSTAINED CELL % 1.6 % (0.0-4.0); LYMPH % 5.8 % (24.0-44.0); MEAN CORPUSCULAR HEMOGLOBIN 27.9 pg (27.0-33.0); MEAN CORPUSCULAR HGB CONC 33.7 g/dl (32.0-36.5); MEAN CORPUSCULAR VOLUME 82.9 fl (80.0-96.0); MONO # 0.4 K/mm3 (0.0-0.8); MONO % 2.3 % (0.0-5.0); NEUTROPHILS # 14.9 K/mm3 (1.8-7.7); NEUTROPHILS % 88.7 % (36.0-66.0); PLATELET COUNT, AUTOMATED 318 k/mm3 (150-450); RED CELL DISTRIBUTION WIDTH 15.1 % (11.5-14.5); WHITE BLOOD COUNT 16.8 K/mm3 (4.0-10.0)
[2016-12-29 07:43] LABS: ANION GAP 10 MEQ/L (8-16); BLOOD UREA NITROGEN 5 MG/DL (7-18); CALCIUM LEVEL 7.2 MG/DL (8.5-10.1); CARBON DIOXIDE LEVEL 24 MEQ/L (21-32); CHLORIDE LEVEL 111 MEQ/L (98-107); GLOMERULAR FILTRATION RATE > 60.0 (>60); GLUCOSE, FASTING 104 MG/DL (70-105); POTASSIUM SERUM 3.8 MEQ/L (3.5-5.1); SODIUM LEVEL 145 MEQ/L (136-145)
[2016-12-29] MEDS: NORCO, ANEXSIA 5/325MG TABLET (HYDROcodone/ACETAMINOPHEN) PO PRN ×2 (09:06→20:18)
[2016-12-29] MEDS: PANTOPRAZOLE 40MG INJ (PROTONIX) (C9113) IV SCH (09:07)
[2016-12-29] MEDS: ENOXAPARIN 40 MG/0.4 ML SYRINGE (J1650) SC SCH (09:07)
[2016-12-29 14:00] VITALS: BP 133/88
[2016-12-29 22:00] VITALS: BP 127/75
[2016-12-30] MEDS: KCL 40MEQ IN D5/0.45NS 1000ML 1,000 ML IV SCH (02:15)
[2016-12-30] MEDS: PIPERACILLIN/TAZOBACTAM SOD 3.375 GM in D5W MINI-BAG PLUS 50 ML IV SCH ×2 (02:15→09:24)
[2016-12-30 06:00] VITALS: BP 132/76
[2016-12-30 07:21] LABS: BASO # 0.1 K/mm3 (0.0-0.2); BASO % 0.6 % (0.0-1.0); EOS # 0.2 K/mm3 (0.0-0.50); LARGE UNSTAINED CELL # 0.3 K/mm3 (0.0-0.4); LARGE UNSTAINED CELL % 1.2 % (0.0-4.0); LYMPH # 1.4 K/mm3 (1.5-4.5); LYMPH % 7.3 % (24.0-44.0); MEAN CORPUSCULAR HEMOGLOBIN 26.6 pg (27.0-33.0); MEAN CORPUSCULAR HGB CONC 32.2 g/dl (32.0-36.5); MEAN CORPUSCULAR VOLUME 82.5 fl (80.0-96.0); MONO # 0.4 K/mm3 (0.0-0.8); MONO % 2.1 % (0.0-5.0); NEUTROPHILS # 17.3 K/mm3 (1.8-7.7); NEUTROPHILS % 87.8 % (36.0-66.0); PLATELET COUNT, AUTOMATED 382 k/mm3 (150-450); RED CELL DISTRIBUTION WIDTH 15.4 % (11.5-14.5); WHITE BLOOD COUNT 19.7 K/mm3 (4.0-10.0)
[2016-12-30 07:31] LABS: ANION GAP 6 MEQ/L (8-16); BLOOD UREA NITROGEN 4 MG/DL (7-18); CALCIUM LEVEL 7.5 MG/DL (8.5-10.1); CARBON DIOXIDE LEVEL 26 MEQ/L (21-32); CHLORIDE LEVEL 109 MEQ/L (98-107); CREATININE FOR GFR 0.59 MG/DL (0.55-1.02); GLOMERULAR FILTRATION RATE > 60.0 (>60); GLUCOSE, FASTING 101 MG/DL (70-105); POTASSIUM SERUM 3.9 MEQ/L (3.5-5.1); SODIUM LEVEL 141 MEQ/L (136-145)
[2016-12-30] MEDS: PANTOPRAZOLE 40MG INJ (PROTONIX) (C9113) IV SCH (09:25)
[2016-12-30] MEDS: ENOXAPARIN 40 MG/0.4 ML SYRINGE (J1650) SC SCH (09:25)
[2016-12-30] MEDS: NORCO, ANEXSIA 5/325MG TABLET (HYDROcodone/ACETAMINOPHEN) PO PRN ×2 (11:31→21:05)
[2016-12-30] MEDS: SIMETHICONE 80 MG CHEW TAB PO PRN (11:31)
[2016-12-30] MEDS ORDERED: ACETAMINOPHEN TAB 650MG DOSE (2X325MG) PO PRN (13:00)
[2016-12-30] MEDS: metroNIDAZOLE 500 MG in APPROPRIATE DILUENT 1 EA IV SCH ×2 (13:49→21:04)
[2016-12-30 14:00] VITALS: BP 126/74
[2016-12-30] MEDS: CIPROFLOXACIN 400 MG in APPROPRIATE DILUENT 1 EA IV SCH (14:58)
[2016-12-30 22:00] VITALS: BP 157/80
[2016-12-31] MEDS: CIPROFLOXACIN 400 MG in APPROPRIATE DILUENT 1 EA IV SCH ×2 (03:58→14:57)
[2016-12-31 06:00] VITALS: BP 143/79
[2016-12-31] MEDS: metroNIDAZOLE 500 MG in APPROPRIATE DILUENT 1 EA IV SCH ×3 (06:13→22:38)
[2016-12-31] MEDS: NORCO, ANEXSIA 5/325MG TABLET (HYDROcodone/ACETAMINOPHEN) PO PRN ×2 (06:18→20:22)
[2016-12-31] MEDS: SIMETHICONE 80 MG CHEW TAB PO PRN ×3 (06:19→22:38)
[2016-12-31 07:05] LABS: BASO % 0.2 % (0.0-1.0); EOS # 0.2 K/mm3 (0.0-0.50); EOS % 0.8 % (0.0-3.0); LARGE UNSTAINED CELL # 0.2 K/mm3 (0.0-0.4); LYMPH # 1.7 K/mm3 (1.5-4.5); LYMPH % 7.9 % (24.0-44.0); MEAN CORPUSCULAR HEMOGLOBIN 26.9 pg (27.0-33.0); MEAN CORPUSCULAR HGB CONC 32.5 g/dl (32.0-36.5); MEAN CORPUSCULAR VOLUME 82.6 fl (80.0-96.0); MONO # 0.5 K/mm3 (0.0-0.8); MONO % 2.4 % (0.0-5.0); NEUTROPHILS # 16.3 K/mm3 (1.8-7.7); NEUTROPHILS % 87.6 % (36.0-66.0); PLATELET COUNT, AUTOMATED 338 k/mm3 (150-450); RED CELL DISTRIBUTION WIDTH 15.6 % (11.5-14.5); WHITE BLOOD COUNT 18.6 K/mm3 (4.0-10.0)
[2016-12-31 07:11] LABS: ANION GAP 10 MEQ/L (8-16); BLOOD UREA NITROGEN 3 MG/DL (7-18); CALCIUM LEVEL 7.6 MG/DL (8.5-10.1); CARBON DIOXIDE LEVEL 25 MEQ/L (21-32); CHLORIDE LEVEL 109 MEQ/L (98-107); CREATININE FOR GFR 0.52 MG/DL (0.55-1.02); GLOMERULAR FILTRATION RATE > 60.0 (>60); GLUCOSE, FASTING 94 MG/DL (70-105); POTASSIUM SERUM 3.5 MEQ/L (3.5-5.1); SODIUM LEVEL 144 MEQ/L (136-145)
[2016-12-31] MEDS: ENOXAPARIN 40 MG/0.4 ML SYRINGE (J1650) SC SCH (08:49)
[2016-12-31] MEDS: PANTOPRAZOLE 40MG INJ (PROTONIX) (C9113) IV SCH (08:49)
[2016-12-31 14:00] VITALS: BP 173/82
[2016-12-31] MEDS: IBUPROFEN 600 MG TAB PO PRN (14:57)
[2016-12-31] MEDS: ONDANSETRON 4MG/2ML VIAL (J2405) IV PRN (20:21)
[2016-12-31 22:00] VITALS: BP 133/71
[2017-01-01] MEDS: CIPROFLOXACIN 400 MG in APPROPRIATE DILUENT 1 EA IV SCH ×2 (03:42→15:15)
[2017-01-01 06:00] VITALS: BP 123/76
[2017-01-01] MEDS: IBUPROFEN 600 MG TAB PO PRN ×2 (06:05→12:46)
[2017-01-01] MEDS: metroNIDAZOLE 500 MG in APPROPRIATE DILUENT 1 EA IV SCH ×3 (06:05→22:32)
[2017-01-01] MEDS: PANTOPRAZOLE 40MG INJ (PROTONIX) (C9113) IV SCH (10:16)
[2017-01-01] MEDS: ENOXAPARIN 40 MG/0.4 ML SYRINGE (J1650) SC SCH (10:16)
[2017-01-01 11:03] LABS: MEAN CORPUSCULAR HEMOGLOBIN 27.3 pg (27.0-33.0); MEAN CORPUSCULAR HGB CONC 32.9 g/dl (32.0-36.5); MEAN CORPUSCULAR VOLUME 83.1 fl (80.0-96.0); RED CELL DISTRIBUTION WIDTH 15.7 % (11.5-14.5); WHITE BLOOD COUNT 16.1 K/mm3 (4.0-10.0)
[2017-01-01] MEDS: SIMETHICONE 80 MG CHEW TAB PO PRN (12:45)
[2017-01-01 14:32] VITALS: BP 136/75
[2017-01-01] MEDS: ONDANSETRON 4MG/2ML VIAL (J2405) IV PRN (15:15)
[2017-01-01 22:00] VITALS: BP 113/55
[2017-01-02] MEDS: NORCO, ANEXSIA 5/325MG TABLET (HYDROcodone/ACETAMINOPHEN) PO PRN (01:38)
[2017-01-02] MEDS: CIPROFLOXACIN 400 MG in APPROPRIATE DILUENT 1 EA IV SCH (03:49)
[2017-01-02] MEDS: metroNIDAZOLE 500 MG in APPROPRIATE DILUENT 1 EA IV SCH (05:50)
[2017-01-02 06:00] VITALS: BP 132/79
[2017-01-02 07:52] LABS: MEAN CORPUSCULAR HEMOGLOBIN 27.2 pg (27.0-33.0); MEAN CORPUSCULAR HGB CONC 33.1 g/dl (32.0-36.5); MEAN CORPUSCULAR VOLUME 82.2 fl (80.0-96.0); RED CELL DISTRIBUTION WIDTH 15.9 % (11.5-14.5); WHITE BLOOD COUNT 13.5 K/mm3 (4.0-10.0)
[2017-01-02] MEDS: IBUPROFEN 600 MG TAB PO PRN (08:26)
[2017-01-02] MEDS: ENOXAPARIN 40 MG/0.4 ML SYRINGE (J1650) SC SCH (08:28)
[2017-01-02] MEDS: PANTOPRAZOLE 40MG INJ (PROTONIX) (C9113) IV SCH (08:28)
[2017-01-02] MEDS ORDERED: FLAG500T PO (12:52)
[2017-01-02] MEDS ORDERED: CIPR-249 PO (12:52)
[2017-01-02] MEDS ORDERED: NORCOTAB PO (12:52)
[2017-01-02] MEDS ORDERED: metroNIDAZOLE (FLAGYL) 500 MG TAB PO SCH (14:00)
[2017-01-02] MEDS ORDERED: CIPROFLOXACIN 500 MG TAB PO SCH (18:00)
--- NOTE | 2017-01-09 12:17 | DS.PDOC ---
Discharge Summary General Date of Admission Dec 25, 2016 at 09:16 Date of Discharge 01/02/2017 Attending Physician: REZA LANDRY MD Specialist/Consultants Involve: Anca Aldana MD Discharge Summary PROCEDURES PERFORMED DURING STAY: diagnostic laparoscopy converted expiratory laparotomy, lysis of adhesion and freeing up the small bowel secondary to inflammatory adhesions, small bowel resection with anastomosis, washout of the abdomen. ADMITTING DIAGNOSES: 1. Small bowel obstruction postoperative 2. History of recent laparoscopy, laparoscopic assisted hysterectomy . DISCHARGE DIAGNOSES: 1. Small bowel perforation from recent laparoscopic-assisted hysterectomy 2. Postoperative small bowel obstruction related to #1 COMPLICATIONS/CHIEF COMPLAINT: Small Bowel Obstruction. HISTORY OF PRESENT ILLNESS: patient is a 36-year-old female who underwent laparoscopic-assisted hysterectomy about 5 days prior to presentation to the emergency department with increasing abdominal pain, nausea and vomiting. She was found to have evidence for small bowel obstruction on CT scan. Rest of the details are in the history and physical examination part of the documents HOSPITAL COURSE: patient was seen by her theater projectionist with MsElías harris for continued observation. I was asked to see the patient regarding my opinion to her postoperative course.. At the time that I saw her she had an NG tube placed for findings of a small bowel obstruction. She felt improved with abdominal decompression with NG tube though my concern is for possible small bowel injury from recent laparoscopy given the amount of fluid. I continued to follow her closely during the day and the patient was still uncomfortable on repeat examination. With discussion with the patient as well as with Dr. Aldana, we decided to bring the patient to the operating room to figure out if there is any associated injury to its causing the patient's symptoms. She was brought to the OR and did diagnostic laparoscopy and she had large amount of spillage of enteric contents in her abdomen with associated peritoneal inflammation and inflammatory adhesions of the small bowel causing the obstruction. She underwent Laparotomy. The perforation was noted in the small bowel. This is resected and anastomosis was fashioned. Her abdomen was washed out.. She remained stable throughout the procedure.Rosi-peratively we placed her in the monitored unit for concern that she might turn septic. She did well and showed immediate improvement. As expected she had some periods of postoperative ileus. The nasogastric tube was removed on postop day 2. As she still remains distended , we slowly placed her initially on liquids and then on soft diet and then finally a regular diet.she intermittently febrile episodes on the early postoperative period but this gradually came down. On about postop day 2-5 she had gradually worsening leukocytosis though clinically she appears to be continuing to get better with her fever curve going back to normal and patient showing signs of bowel function is able to tolerate liquids and regular diet. We continued her on antibiotics and followed this with thoughts of repeating a CT scan of the abdomen and pelvis after the weekend if she continues to have worsening leukocytosis or signs of intra-abdominal sepsis or infection. Her leukocytosis and gradually came down. Thus we held off on any further imaging.when I came back after the weekend, patient looks quite well and has been tolerating regular food and has been having normal bowel function and her incision is healing well without any signs of any infection. Her leukocytosis has come down to 13.5 from 19 prior to the weekend.. With this she was subsequently discharged on oral antibiotics. hher peritoneal fluid cultures grew Klebsiella sensitive to quinolones and some anaerobic cocci.. She was discharged home on ciprofloxacin and metronidazole. She is instructed to follow- up with me in 2 weeks' time. DISCHARGE MEDICATIONS: Please see below. ALLERGIES: Please see below. PHYSICAL EXAMINATION ON DISCHARGE: VITAL SIGNS: Please see below. GENERAL: ccomfortable HEENT: pink palpebral conjunctiva anicteric sclerae. Lips and mucosa moist NECK: supple, no lymphadenopathy no jugular venous distention CARDIOVASCULAR EXAMINATION: regular heart rate and rhythm RESPIRATORY EXAMINATION: clear breath sounds bilaterally to auscultation ABDOMINAL EXAMINATION: round, soft, nondistended. Lower midline incision healing well. [place] are intact. No erythema. Subcutaneous [place] drain was discontinued. Drain site is dry. Nontender and palpation. Active bowel sounds on auscultation EXTREMITIES: no erythema SKIN: warm and moist NEUROLOGICAL EXAMINATION: awake, alert and oriented PSYCHIATRIC EXAMINATION: within affect normal LABORATORY DATA: Please see below. IMAGING: CT of the abdomen and pelvis on ER presentation PROGNOSIS: good ACTIVITY:light activity DIET: regular as tolerated. DISCHARGE PLAN: discharged to home on oral antibiotics. DISPOSITION: 01 Home, Self-Care. DISCHARGE INSTRUCTIONS: 1. May shower, pat incisions until dry. May keep incisions open to air. 2. Follow-up in 2 weeks for removal of maryam 3. Complete 2 week antibiotic course. 4.Call the office if with fevers, severe abdominal pain, nausea or vomiting, wound problems ITEMS TO FOLLOWUP ON ON OUTPATIENT: 1. Remove maryam. DISCHARGE CONDITION: Stable. TIME SPENT ON DISCHARGE: Greater than 45 minutes. Discharge Medications Scheduled (Esomeprazole Magnesium) 20 Mg Cap, 20 MG PO QPM, (Reported) Ciprofloxacin HCl (Cipro) 500 Mg Tab, 500 MG PO BID@06,18 Metronidazole (Flagyl) 500 Mg Tab, 500 MG PO Q8H Scheduled PRN Acetaminophen/Hydrocodone ([place], Anexsia 5/325) 1 Tab Tab, 1-2 TAB PO Q4HP PRN for MILD/MODERATE PAIN (PS 1-7) Allergies Coded Allergies: No Known Drug Allergy (Verified Allergy, Unknown, 12/21/16) REZA LANDRY MD Jan 09, 2017 12:16
== END 2017-01-02 14:40 | disposition home or self-care (01) | DRG 791 ==
LOC: M ED 04:12 → M ED INP 09:16 → M PED 12:26 → M PCU 22:50 → M PED 12-26 23:49 → M MS5PR 12-28 13:44
PROVIDERS: ADMIT Obstetrics & Gynecology; ATTEND Surgery
PROC: 0DN80ZZ Release Small Intestine, Open Approach (ICD-10-PCS; 2016-12-25)
PROC: 0DB80ZZ Excision of Small Intestine, Open Approach (ICD-10-PCS; principal; 2016-12-25 18:30)
DX: K91.72 Accidental puncture and laceration of a digestive system organ or structure during other procedure (principal); A41.9 Sepsis, unspecified organism; K65.9 Peritonitis, unspecified; R18.8 Other ascites; G89.18 Other acute postprocedural pain; K91.3 Postprocedural intestinal obstruction; K21.9 Gastro-esophageal reflux disease without esophagitis; Z98.51 Tubal ligation status; Z90.710 Acquired absence of both cervix and uterus; Z79.899 Other long term (current) drug therapy; B96.1 Klebsiella pneumoniae [K. pneumoniae] as the cause of diseases classified elsewhere

== ENCOUNTER → 2017-01-09 | Outpatient (CLI) | payer BC, OTHER ==
[~2017-01-09] MED LIST changes: +CIPR-249 PO; +ESOM0.1C PO; +FLAG500T PO
[2017-01-09 16:22] LABS: MEAN CORPUSCULAR HEMOGLOBIN 26.7 pg (27.0-33.0); MEAN CORPUSCULAR VOLUME 83.4 fl (80.0-96.0); RED CELL DISTRIBUTION WIDTH 15.1 % (11.5-14.5); WHITE BLOOD COUNT 10.1 K/mm3 (4.0-10.0)
[2017-01-09 16:32] LABS: ALBUMIN 2.8 GM/DL (3.2-5.2); ALKALINE PHOSPHATASE 80 U/L (45-117); ALT/SGPT 15 U/L (12-78); ANION GAP 8 MEQ/L (8-16); AST/SGOT 8 U/L (15-37); BILIRUBIN,TOTAL 0.2 MG/DL (0.2-1.0); BLOOD UREA NITROGEN 13 MG/DL (7-18); CALCIUM LEVEL 8.9 MG/DL (8.5-10.1); CARBON DIOXIDE LEVEL 28 MEQ/L (21-32); CHLORIDE LEVEL 105 MEQ/L (98-107); CREATININE FOR GFR 0.64 MG/DL (0.55-1.02); GLOMERULAR FILTRATION RATE > 60.0 (>60); GLUCOSE, FASTING 123 MG/DL (70-105); POTASSIUM SERUM 3.4 MEQ/L (3.5-5.1); SODIUM LEVEL 141 MEQ/L (136-145); TOTAL PROTEIN 7.5 GM/DL (6.4-8.2)
== END ==
LOC: M LAB 15:44
PROVIDERS: ATTEND Surgery
DX: S36.438 Laceration of other part of small intestine (principal); X58.XXXD Exposure to other specified factors, subsequent encounter; Y92.89 Other specified places as the place of occurrence of the external cause; Y93.89 Activity, other specified; Y99.8 Other external cause status

== ENCOUNTER → 2017-11-30 | Outpatient (CLI) | payer BC, OTHER ==
[~2017-11-30] MED LIST changes: -/MOM400 PO; -/PANT40TA PO; -/RANI15TA PO; -ACIP20TA PO; -ANUS2.5C2 EXT; -CIPR-249 PO; -DOCU10ELUD PO; -ESOM0.1C PO; -FLAG500T PO; +GASTROGRAFIN SOLUTION 30ML (Q9963) As Ordered; -IBUP600T26 PO; +ISOVUE-370 76% 100ML VIAL (Q9967) As Ordered; -LABE20TAB PO; -LABE300T PO; -LORT5TAB PO; -NEXI20GR PO; -NORCOTAB PO; -PRENTAB74 PO; -ZANT150T PO
== END ==
LOC: M RAD 14:20
DX: K43.2 Incisional hernia without obstruction or gangrene (principal); N94.89 Other specified conditions associated with female genital organs and menstrual cycle
CPT/HCPCS: Q9963

== ENCOUNTER → 2019-02-13 | Outpatient (CLI) | payer BC, OTHER ==
[~2019-02-13] MED LIST changes: +ACIP20TA PO; +ANUS2.5C2 EXT; +CIPR-249 PO; +DOCU5LIQ PO; +ESOM0.1C PO; +FLAG500T PO; -GASTROGRAFIN SOLUTION 30ML (Q9963) As Ordered; +GASTROGRAFIN SOLUTION 30ML (Q9963) As Ordered ONE; +HYDR-3715 PO; +IBUP600T26 PO; -ISOVUE-370 76% 100ML VIAL (Q9967) As Ordered; +ISOVUE-370 76% 100ML VIAL (Q9967) As Ordered ONE; +LABE200T13 PO; +LABE300T PO; +LORT5TAB PO; +MILK10SU PO; +NEXI20GR PO; +NORCOTAB PO; +PRENTAB74 PO; +PROT1TAB2 PO; +RANI1TAB17 PO; +ZANT150T PO
--- NOTE | 2019-02-14 06:46 | REP ---
Clinical: Abdominal pain and hernia repair site. Technique: Axial contrast enhanced images from the lung bases to the pubic symphysis using oral (per protocol) and 100 ml Isovue 370 intravenous contrast material with coronal and sagittal re-formations. Comparison: 11/30/2017. Findings: Lung bases are clear. Visualized heart and pericardium normal. Liver, spleen, pancreas, gallbladder, bilateral adrenal glands and kidneys are normal. The enteric system is unremarkable and without obstruction or acute inflammatory process. Evidence of prior appendectomy. Pelvis demonstrates normal bladder and adnexa with evidence of prior hysterectomy. No pelvic fluid or ascites. No free air. No adenopathy. No obvious hernia. Very subtle postsurgical changes in the periumbilical region may reflect prior hernia repair. Musculoskeletal structures are intact. Impression: No obvious acute abdominopelvic pathology appreciated. Electronically Signed by Maxime Deshpande MD 02/14/2019 06:37 A
== END ==
LOC: M RAD 14:29
PROVIDERS: ATTEND Physician Assistant Surgical
DX: Z98.890 Other specified postprocedural states (principal); Z87.19 Personal history of other diseases of the digestive system
CPT/HCPCS: 74177; Q9963; Q9967

== ENCOUNTER → 2021-03-08 | Outpatient (CLI) | payer BC, OTHER ==
[~2021-03-08] MED LIST changes: -GASTROGRAFIN SOLUTION 30ML (Q9963) As Ordered ONE; -ISOVUE-370 76% 100ML VIAL (Q9967) As Ordered ONE
--- NOTE | 2021-03-08 11:07 | REPMRS ---
Patient History The patient states she had a clinical breast exam in December 2020. Family history of breast cancer at age 50 or over in maternal grandmother, breast cancer at age 50 or over in paternal grandmother, colorectal cancer at age 50 or over in maternal grandfather. Took hormonal contraceptives for 16 years. Tomosynthesis is performed. [place]para breast density is c. [facility] lifetime [facility] of [facility] 19.8%. Pt denied . Pfizer vaccines 06/06/20 left arm. 06/27/20 left arm. Patient states no breast complaints today. Patient has signed MRS History Sheet. Digital Woman Screen Mammo: March 08, 2021 - Exam #: [id number] Bilateral CC and MLO view(s) were taken. Technologist: Melonie Sparks, RT No prior studies available for comparison. FINDINGS: The breast tissue is heterogeneously dense. This may lower the sensitivity of mammography. There is a moderate amount of residual fibroglandular tissue which is fairly symmetric. There is no dominant mass, areas of architectural distortion, or clustered microcalcification typical of malignancy. Assessment: BI-RADS/ACR category 1 mammogram. Negative Mammogram. Recommendation Routine screening mammogram in 1 year (for women over age 40). This mammogram was interpreted with the aid of an FDA-approved computer-aided dectection system. Electronically Signed By: Eugenio Mccabe MD 03/08/21 [id number]
== END ==
LOC: M WHC 08:26
PROVIDERS: ATTEND Nurse Practitioner Family
DX: Z12.31 Encounter for screening mammogram for malignant neoplasm of breast (principal)

== ENCOUNTER → 2021-08-26 | Outpatient (CLI) | payer BC, OTHER | LOC: M EKG 08:48 | PROVIDERS: ATTEND Orthopaedic Surgery | DX: M67.51 Plica syndrome, right knee (principal) ==

== ENCOUNTER → 2022-04-06 | Outpatient (CLI) | payer BC, OTHER | LOC: M WHC 13:07 | PROVIDERS: ATTEND Nurse Practitioner Family | DX: Z12.31 Encounter for screening mammogram for malignant neoplasm of breast (principal) ==

== ENCOUNTER → 2022-04-12 | Outpatient (CLI) | payer BC, OTHER | LOC: M WHC 08:13 | PROVIDERS: ATTEND Nurse Practitioner Family | DX: R59.0 Localized enlarged lymph nodes (principal) ==

== ENCOUNTER → 2022-06-11 | Outpatient (CLI) | payer BC, OTHER ==
[~2022-06-11] MED LIST changes: +BRIN10TA4 PO; +BUPR150T12 PO; +CHOL50003 PO; +ESOM1CAP5 PO; +MAGN250T7 PO; +PROBCAP14 PO
== END ==
LOC: M LABSMTC 10:05
PROVIDERS: ATTEND Anesthesiology
DX: Z01.812 Encounter for preprocedural laboratory examination (principal); Z11.52 Encounter for screening for COVID-19

== ENCOUNTER 2022-06-16 06:05 | Day surgery (SDC) | payer BC, OTHER ==
[~2022-06-16] VITALS: Ht 157.5 cm; Wt 87.1 kg
[~2022-06-16 06:05] MED LIST changes: +CelecoXIB 400 MG CAP PO ONE; +ceFAZolin SOD 2 GM in IV 1 EA IV ONE
[2022-06-16] MEDS ORDERED: LR 1,000 ML IV SCH (06:55)
[2022-06-16] MEDS ORDERED: SCOPOLAMINE 1MG TRANSDERMAL PATCH TOP ONE (07:10)
[2022-06-16] MEDS ORDERED: propofoL 200 MG/20 ML VIAL As Ordered ONE (07:15)
[2022-06-16] MEDS ORDERED: LIDOCAINE 2% 100MG/5ML SDV (FOR ANES.) As Ordered ONE (07:15)
[2022-06-16] MEDS ORDERED: MIDAZOLAM INJ 2MG/2ML VIAL As Ordered ONE (07:16)
[2022-06-16] MEDS ORDERED: fentaNYL 100 MCG/2 ML INJECTION As Ordered ONE (07:16)
[2022-06-16] MEDS ORDERED: BUPIVACAINE HCL 0.25% 30ML VIAL As Ordered ONE (07:20)
[2022-06-16] MEDS ORDERED: LIDOCAINE 1% SDV 30ML VIAL As Ordered ONE (07:20)
[2022-06-16] MEDS ORDERED: oxyCODONE 5MG TAB PO PRN (08:35)
[2022-06-16] MEDS ORDERED: fentaNYL 100 MCG/2 ML INJECTION IV PRN (08:35)
[2022-06-16] MEDS ORDERED: ONDANSETRON 4MG 2ML VIAL IV PRN (08:35)
[2022-06-16] MEDS ORDERED: MEPERIDINE 25 MG/ML 1ML VIAL IV PRN (08:35)
[2022-06-16] MEDS ORDERED: KETOROLAC 60MG 2ML VIAL As Ordered ONE (09:00)
[2022-06-16] MEDS ORDERED: METOCLOPRAMIDE INJ 10MG/2ML VIAL As Ordered ONE (09:00)
[2022-06-16] MEDS ORDERED: ONDANSETRON 4MG 2ML VIAL As Ordered ONE (09:00)
[2022-06-16] MEDS ORDERED: ACETAMINOPHEN 1000MG 100ML IV BAG As Ordered ONE (09:00)
[2022-06-16] MEDS ORDERED: KETOROLAC 30 MG/ML 1ML VIAL IV PRN (09:05)
[2022-06-16] MEDS ORDERED: NORCO, ANEXSIA 5/325MG TABLET (HYDROcodone/ACETAMINOPHEN) PO PRN (09:05)
[2022-06-16 10:30] VITALS: BP 111/69
== END 2022-06-16 10:35 | disposition home or self-care (01) ==
LOC: M SDC 06:05
PROVIDERS: ATTEND Surgery
DX: D17.39 Benign lipomatous neoplasm of skin and subcutaneous tissue of other sites (principal); E65 Localized adiposity; K21.9 Gastro-esophageal reflux disease without esophagitis; F41.9 Anxiety disorder, unspecified; N80.9 Endometriosis, unspecified; F32.A Depression, unspecified; Z86.73 Personal history of transient ischemic attack (TIA), and cerebral infarction without residual deficits; Z79.899 Other long term (current) drug therapy
CPT/HCPCS: 11406; 88304; J0131; J0690; J1100; J1885; J2250; J2405; J2765; J3010; S0020

== ENCOUNTER → 2023-06-20 | Outpatient (CLI) | payer BC, OTHER ==
[~2023-06-20] MED LIST changes: -CelecoXIB 400 MG CAP PO ONE; -ceFAZolin SOD 2 GM in IV 1 EA IV ONE
== END ==
LOC: M WHC 07:55
PROVIDERS: ATTEND Nurse Practitioner Family
DX: Z12.31 Encounter for screening mammogram for malignant neoplasm of breast (principal)

== ENCOUNTER → 2023-06-27 | Outpatient (CLI) | payer BC | LOC: M WHC 12:59 | PROVIDERS: ATTEND Nurse Practitioner Family | DX: N60.02 Solitary cyst of left breast (principal) ==